=== PATIENT | female | born 1940 | race Caucasian/White ===

== ENCOUNTER 2021-03-20 07:23 | Day surgery (SDC) | payer OTHER, SELFPAY ==
[~2021-03-20] VITALS: Ht 154.9 cm; Wt 72.6 kg
[~2021-03-20 07:23] MED LIST: MEPIVACAINE PF 1% 10 MG/ML VIAL INJ ONE; NS 1000 ML IV.SOLN IV ONE; NS IRRIG SOLN 1000 ML IR ONE
[2021-03-20] MEDS ORDERED: MIDAZOLAM HCL 5 MG/5 ML VIAL ONE (08:28)
[2021-03-20] MEDS ORDERED: MEPERIDINE 100 MG INJ. 100 MG/ML VIAL ONE (08:28)
[2021-03-20 13:11] VITALS: BP_SYST 163
== END 2021-03-20 12:00 | disposition home or self-care (01) ==
LOC: UNDOADMIN 07:23 → SMU 07:23 → SDS 07:23 → EDSTATUS 09:45 → SDS 12:00 → UNDODISIN 12:00
PROVIDERS: ATTEND Dentist General Practice
DX: M27.2 Inflammatory conditions of jaws (principal); I50.9 Heart failure, unspecified; J45.909 Unspecified asthma, uncomplicated; K21.9 Gastro-esophageal reflux disease without esophagitis; Z88.0 Allergy status to penicillin; M89.8X0 Other specified disorders of bone, multiple sites; M27.40 Unspecified cyst of jaw; M27.62 Post-osseointegration biological failure of dental implant; M26.603 Bilateral temporomandibular joint disorder, unspecified; M85.9 Disorder of bone density and structure, unspecified; K05.223 Aggressive periodontitis, generalized, severe; K08.421 Partial loss of teeth due to periodontal diseases, class I; K12.2 Cellulitis and abscess of mouth; Z79.899 Other long term (current) drug therapy
CPT/HCPCS: 21215; 21248; 36415; 41826; 70140; 87426; C1713 ×2; J2175; J2250; J7030

== ENCOUNTER 2021-05-23 07:40 | Day surgery (SDC) | payer OTHER ==
[~2021-05-23] VITALS: Ht 152.4 cm; Wt 71.2 kg
[2021-05-23] MEDS ORDERED: NS 250 ML BAG IV ONE (08:00)
[2021-05-23] MEDS ORDERED: NS IRRIG SOLN 1000 ML IR ONE (08:00)
[2021-05-23] MEDS ORDERED: BENZOCAINE 20% GEL 32 GM BOTTLE MM ONE (08:00)
[2021-05-23] MEDS ORDERED: ARTICAINE HCL/EPINEPHRINE 4%/1:200,000 BIT 1.7 ML CARTRIDGE IJ ONE (08:00)
[2021-05-23 13:20] VITALS: BP_SYST 125
== END 2021-05-23 13:20 | disposition home or self-care (01) ==
LOC: SDS 07:40 → SMU 07:43 → SDS 13:20
PROVIDERS: ATTEND Dentist General Practice
DX: M27.2 Inflammatory conditions of jaws (principal); M89.8X0 Other specified disorders of bone, multiple sites; M27.40 Unspecified cyst of jaw; M27.62 Post-osseointegration biological failure of dental implant; M26.603 Bilateral temporomandibular joint disorder, unspecified; K04.8 Radicular cyst; K05.223 Aggressive periodontitis, generalized, severe; K12.2 Cellulitis and abscess of mouth; K08.421 Partial loss of teeth due to periodontal diseases, class I; E78.5 Hyperlipidemia, unspecified; I25.10 Atherosclerotic heart disease of native coronary artery without angina pectoris; M62.838 Other muscle spasm; K05.6 Periodontal disease, unspecified; I11.0 Hypertensive heart disease with heart failure; I50.9 Heart failure, unspecified; Z95.2 Presence of prosthetic heart valve; J45.909 Unspecified asthma, uncomplicated; K21.9 Gastro-esophageal reflux disease without esophagitis; I25.9 Chronic ischemic heart disease, unspecified; Z79.899 Other long term (current) drug therapy; Z88.0 Allergy status to penicillin; Z20.822 Contact with and (suspected) exposure to COVID-19
CPT/HCPCS: 21025; 21215; 21248; 36415; 70140; 87426; C1713 ×2; J7050